=== PATIENT | female | born 1985 | race African-American/Black ===

== ENCOUNTER 2022-06-21 07:21 | Outpatient (CLI) | payer BC, SELFPAY ==
--- NOTE | 2022-06-21 07:15 | CRLHL7_ITS ---
For Patients: As a result of the Century Cures Act, medical imaging exams and procedure reports are released immediately into your electronic medical record. You may view this report before your referring provider. If you have questions, please contact your health care provider. INDICATION: First trimester scan, establish dates. COMPARISON: None. TECHNIQUE: Real-time gibson-scale imaging of the pelvis was performed. FINDINGS: Sonographic imaging demonstrates a single living intrauterine gestation. The embryo demonstrates a regular cardiac rate measuring 146 beats per minute. The embryo`s crown-rump length measurement of 1.4 cm corresponds to a gestational age of 7 weeks 5 days with a sonographic due date of February 02, 2023. There is a normal-appearing yolk sac measuring 3.3 mm. There are no gross abnormalities noted within the embryo at this early state of development. The placenta has not yet developed. The gestational sac has a normal appearance. Along the superior right side of the gestational sac is a large area of presumed subchorionic hemorrhage measuring 3.9 x 1.4 x 4 cm. Given this presumed large subchorionic hemorrhage, a short interval follow-up ultrasound is recommended to assess for progression or regression of the . The amount of fluid within the sac appears appropriate for gestational age. The cervix is closed. The myometrium appears normal with the exception of a left superior fundal fibroid measuring 1.7 x 2.0 x 2.3 cm. The ovaries are of normal size. The right ovary measures 3.3 x 1.7 x 2.5 cm. The left ovary measures 4.9 x 3.0 x 3.1 cm. Corpus luteum cyst of on the left measuring 2.8 x 2.4 x 2.9 cm. There are no suspicious fluid collections noted in the cul-de-sac. A voicemail message was left for Nayeli Zuleta, nurse practitioner ,at 12 noon on June 21, 2022 regarding these findings. IMPRESSION: Normal first trimester OB ultrasound exam. Gestational age calculated at 7 weeks 5 days with a sonographic due date of February 02, 2023. Please note however there appears to be a large amount of subchorionic hemorrhage superiorly toward the right of midline. A short interval follow-up ultrasound may be helpful to assess for progression or regression of this hemorrhage. Left fundal fibroid. Dictated by Kyle Garcia MD @ 06/21/2022 12:03:01 PM (Electronically Signed)
== END 2022-06-21 07:22 | disposition home or self-care (01) ==
PROVIDERS: Visit Provider Registered Nurse
DX: Z34.91 Encounter for supervision of normal pregnancy, unspecified, first trimester (principal); O34.11 Maternal care for benign tumor of corpus uteri, first trimester; Z3A.01 Less than 8 weeks gestation of pregnancy
CPT/HCPCS: 76801; 86592; 86703; 86762; 86787; 86803; 86850; 86900; 86901; 87086; 87340; 87491; 87591

== ENCOUNTER 2022-06-21 08:17 | Outpatient (CLI) | payer BC, SELFPAY ==
[2022-06-21 12:00] LABS: Chlamydia DNA Amplified* NOT DETECTED (No Detected); GC DNA Amplified* NOT DETECTED (No Detected)
== END 2022-06-21 08:18 | disposition home or self-care (01) ==
PROVIDERS: Visit Provider Registered Nurse
DX: Z34.91 Encounter for supervision of normal pregnancy, unspecified, first trimester (principal)
CPT/HCPCS: 86592; 86703; 86762; 86787; 86803; 86850; 86900; 86901; 87086; 87340; 87491; 87591

== ENCOUNTER 2022-07-05 07:15 | Outpatient (CLI) | payer BC, SELFPAY ==
--- NOTE | 2022-07-05 07:15 | CRLHL7_ITS ---
For Patients: As a result of the Century Cures Act, medical imaging exams and procedure reports are released immediately into your electronic medical record. You may view this report before your referring provider. If you have questions, please contact your health care provider. INDICATION: Follow-up subchorionic hemorrhage. COMPARISON: 06/21/2022 TECHNIQUE: Real-time gibson-scale imaging of the pelvis was performed. FINDINGS: Sonographic imaging demonstrates a single living intrauterine gestation. The embryo demonstrates a regular cardiac rate measuring 179 beats per minute. The embryo`s crown-rump length measurement of 2.9 cm corresponds to a gestational age of 9 weeks 5 days with a sonographic due date of 02/02/2023. There is a normal-appearing yolk sac. There are no gross abnormalities noted within the embryo at this early state of development. The gestational sac has a normal appearance. There is a 3.4 x 2.0 x 1.4 cm perigestational hemorrhage adjacent to the right fundal gestational sac. The amount of fluid within the sac appears appropriate for gestational age. IMPRESSION: Right fundal subchorionic hemorrhage measuring 3.4 x 2.0 x 1.4 cm, previously measuring 3.9 x 1.4 x 4.0 cm Dictated by Mak Styles MD @ 07/05/2022 12:26:22 PM (Electronically Signed)
== END 2022-07-05 07:16 | disposition home or self-care (01) ==
LOC: US 07:17
PROVIDERS: Visit Provider Registered Nurse
DX: O46.8X1 Other antepartum hemorrhage, first trimester (principal); Z3A.09 9 weeks gestation of pregnancy
CPT/HCPCS: 76816

== ENCOUNTER 2022-11-08 09:35 | Outpatient (CLI) | payer BC, SELFPAY | END 2022-11-08 09:36 | disposition home or self-care (01) | LOC: NFLDREF 11-10 10:23 | PROVIDERS: PCP Registered Nurse; Referring Provider Registered Nurse; Visit Provider Advanced Practice Midwife | DX: Z34.93 Encounter for supervision of normal pregnancy, unspecified, third trimester (principal); Z3A.28 28 weeks gestation of pregnancy | CPT/HCPCS: 86592 ==

== ENCOUNTER 2023-01-01 09:10 | Outpatient (CLI) | payer BC, SELFPAY ==
--- NOTE | 2023-01-01 09:15 | CRLHL7_ITS ---
For Patients: As a result of the Century Cures Act, medical imaging exams and procedure reports are released immediately into your electronic medical record. You may view this report before your referring provider. If you have questions, please contact your health care provider. INDICATION: COVID IN , GROWTH COMPARISON: 07/05/2022 TECHNIQUE: Real time gibson scale imaging of the fetus was performed. FINDINGS: Sonographic imaging demonstrates a single living intrauterine gestation. Fetus demonstrates a regular cardiac rate of 126 beats per minute. Fetus has a transverse position, head maternal left. The placenta lies anteriorly. Amniotic fluid volume appears normal and there is a single deepest vertical pocket: 5.8 cm. The estimated weight is 3394gm which lies at the 94th %. BPD 53rd percentile. HC 41st percentile. AC greater than 97th percentile. FL 66th percentile. The HC/AC ratio measures 0.92 range (0.91-1.05). IMPRESSION: Sonographic gestational age 37 weeks 2 days and sonographic due date 01/20/2023. Sonographic age is 8 days ahead of the clinical age. Estimated weight 94th percentile. Abdominal circumference greater than 97th percentile. Dictated by Mak Styles MD @ 01/01/2023 10:05:59 AM (Electronically Signed)
== END 2023-01-01 09:11 | disposition home or self-care (01) ==
LOC: US 09:10
PROVIDERS: Visit Provider Registered Nurse
DX: O98.519 Other viral diseases complicating pregnancy, unspecified trimester (principal); U07.1 COVID-19; Z3A.37 37 weeks gestation of pregnancy
CPT/HCPCS: 76816; 87081; 87653

== ENCOUNTER 2023-01-08 09:04 | Outpatient (CLI) | payer BC, SELFPAY ==
[2023-01-08 09:13] VITALS: PULSE 76; O2SAT 96
[2023-01-08 09:21] VITALS: BP 114/56; PULSE 72; RESP 17; TEMP 37.1; O2SAT 99
[2023-01-08] MEDS: TERBUTALINE 1 MG/ML INJ 0.25 MG SUBCUT (11:01)
--- NOTE | 2023-01-08 11:18 | P.GYNPRC_ITS ---
Procedure Note Time Seen by Provider: 11:00 Date of procedure: 01/08/23 Pre-op diagnosis: malpresentation (transverse) Anesthesia: none Complications: None. Surgeon: Dr. Jeanine Stahl Sales Teacher: Kenzie Stroud Condition: stable Findings: Preprocedure ultrasound confirmed male presentation, transverse back up with head to maternal left. Procedure Description: The risks, benefits, and alternatives of performing an ECV were discussed on admission, including the risk of risks of a non-reassuring heart rate, PROM, placental abruption, possible emergency , and fetomaternal hemorrhage. We reviewed that success rate is dependent upon provider experience, amniotic fluid volume, placental location, and maternal weight. We discussed that in the case of a failed ECV, we plan a delivery for persistent malpresentation. Consent was obtained and the patient desired to proceed. Ultrasound confirmed transverse malpresentation prior to procedure. Procedure Note: Terbutaline 0.25 mg SQ was given and we then proceeded with the procedure. With manual pressure applied to the maternal abdomen, with attempted version in the clockwise direction. A total of 1 attempts were made. Ultimately the procedure was successful and presentation at the conclusion was cephalic. Both mom and baby were stable. heart rate noted to be in the 130s postprocedure with moderate variability. Plan to proceed with 1 hour of observation with continuous heart rate monitoring and toco. Anticipate dismissal to home. Return precautions reviewed. Recommend ultrasound confirmation of presentation upon admission for delivery given history of variable presentation.
--- NOTE | 2023-01-08 12:44 | PC.OBNST ---
NST Note NST Note Start: 01/08/23 09:08 Freq: ONCE Status: Active Protocol: Document 01/08/23 12:42 [facility] (Rec: 01/08/23 12:44 [facility] [id number]) NST Note 7 Para (# of births) 4 EDC 01/29/23 Gestational Age In Weeks & Days 37 Weeks & 0 Days High Risk Factors History of / Stillborn Patient Presented with Complaint(s) of Other Other Complaints Patient here for scheduled version which was successful. Reactive Yes Appropriate for Gestational Age Yes BARBER Whittington RN Date 01/08/23 Reactive Yes Appropriate for Gestational Age Yes BARBER Gtz Date 01/08/23 OB NST charge Yes Complete NST Note via Write Note Yes The provider's electronic signature indicates the NST is reactive/appropriate for gestational age. *Note to provider: If an addendum is required, open the patient's chart and click on the note under the Nurse/Allied Health tab.
== END 2023-01-08 12:30 | disposition home or self-care (01) ==
LOC: OB 11:57 → OB CLI 17:24 → OB 17:25
PROVIDERS: Visit Provider Obstetrics & Gynecology
DX: O09.523 Supervision of elderly multigravida, third trimester (principal); Z3A.37 37 weeks gestation of pregnancy
CPT/HCPCS: 59025; 99211; J3105

== ENCOUNTER 2023-01-30 07:09 | Inpatient (IN) | payer BC, SELFPAY ==
[2023-01-30] VITALS (18 sets, daily range): BP systolic 107–130; BP diastolic 46–72; PULSE 53–78; RESP 16–18; TEMP 36.5–37.1; O2SAT 99; BMI 30.1
--- NOTE | 2023-01-30 08:11 | W.PM.LDBA ---
Subjective History of Present Illness Narrative: Nile is a 37 yo at 40 2/7 weeks gestation being admitted to Labor and Delivery for AMA and unstable lie. She reports she has had some mild irregular contractions but nothing painful. She was checked in clinic yesterday, /2. Her full history and physical was dictated by YVON Wayne on 01/09. Please see this for details. Specific Issues/Plans G 7 P 5014 : Germán H & P done 01/09 by Sandie Wayne 1. AMA Mat 21 order placed Level 2 US: referral to [facility], 09/01 unremarkable w/ exception of hypoplastic nasal bone 2. H/o son with hypoplastic left heart, first . at 5 days of age in surgery. NIPT: low risk Level 2 US: Completed 09/01, see above echo: Scheduled with Pediatric cardiology: 09/29 Normal cardiac anatomy. echo in first 6months of life. 3. Rec. baby aspirin starting at 12 weeks to reduce risk of preeclampsia due to AMA and mother with history of preeclampsia. 4. Large BLANCA 3.9 x 1.4 x 4 cm. Advised pelvic rest. Recommend follow-up ultrasound in 2 weeks. F/u u/s: BLANCA 3.4 x 2.0 x 1.4 cm 5. Fibroid measuring 1.7 x 2 x 2.3 cm. 6. Closely spaced pregnancies. 7. 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 Covid positive; +test on 11/30/22- 9. 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 37 yo at 40 2/7 weeks gestation? complicated by:?AMA, Hx of hypoplastic left heart, fibroid, close spacing, hypoplastic nasal bone of fetus, covid positive during ,, unstable lie Labor type: Induced, early labor? Category 1 FHR pattern.?? Labor complicated by: unstable lie? GBS negative? ? PLAN:? 1. Routine intrapartum cares as ordered. Reviewed options of cytotec, AROM, or pitocin. Her last IOL was AROM and Pit. She would like to try without IV. Plan cytotec. 2. Monitoring per policy, Continuous with induction agents. May consider intermittent if not on induction agent.? 3. Planning unmedicated . Desires water . Consent signed. Hep C negative. Candidate for analgesia of choice if desired. Previously had waterbirth.?? 4. Patient encouraged to reposition and ambulate to promote physiologic labor and .? 5. Anticipate .? Delivery/Labor/Induction Plan Plan: induction Induction method: per misoprostol protocol OB Exam Physical Exam Vital signs: Pulse BP Pulse Ox 64 120/64 99 01/30/23 08:01 01/30/23 08:01 01/30/23 07:59 Narrative: Vitals Reviewed Constitutional:? Alert and oriented x3 HEENT:? Normocephalic, atraumatic Neck:? Supple Lungs:? Clear to auscultation bilaterally Heart:? Regular rate and rhythm, no murmur, rub or gallop Abdomen:? Soft, nontender, and gravid. Vertex by Erick's, confirmed bedside US. Extremities:? No edema or erythema Cervix: deferred, checked in clinic yesterday NST: 115 bpm/moderate variability/15x15 accelerations/no decelerations/contractions occasionally Detailed Labor and Delivery Exam Patient Gravid: Yes
[2023-01-30] MEDS: miSOPROStoL 25 MCG/0.25 TABLET VAGINAL (08:22)
--- NOTE | 2023-01-30 19:28 | PM.OBCN1 ---
OB - CN: HPI Date of Consult Time Seen by Provider: 19:28 Date Seen: 01/30/23 Patient: [facility] Patient Consult date: 01/30/23 Requesting Physician: Yesenia Rosen CNM Primary Care Provider: Not a Local Provider Consult Narrative Reason for consult: other (External cephalic version) Narrative: The patient is a 37 year old G 7 P 5 at 40 2/7 weeks gestation that was admitted to the Center on 01/30/23 for induction of labor secondary to unstable lie. She has already had 1 successful external cephalic version during this . At the time of admission this morning, ultrasound at the bedside reportedly confirmed vertex presentation. The patient received single dose misoprostol to induce labor. She is kori every 2-4 minutes. heart tones are category 1. Admission history and physical was completed by Radha Wayne CNM on 01/09/2023. OB PROBLEM LIST: 1. AMA Mat 21 order placed Level 2 US: referral to [facility], 09/01 unremarkable w/ exception of hypoplastic nasal bone 2. H/o son with hypoplastic left heart, first . at 5 days of age in surgery. NIPT: low risk Level 2 US: Completed 09/01, see above echo: Scheduled with Pediatric cardiology: 09/29 Normal cardiac anatomy. echo in first 6months of life. 3. Rec. baby aspirin starting at 12 weeks to reduce risk of preeclampsia due to AMA and mother with history of preeclampsia. 4. Large BLANCA 3.9 x 1.4 x 4 cm. Advised pelvic rest. Recommend follow-up ultrasound in 2 weeks. F/u u/s: BLANCA 3.4 x 2.0 x 1.4 cm 5. Fibroid measuring 1.7 x 2 x 2.3 cm. 6. Closely spaced pregnancies. 7. 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 Covid positive; +test on 11/30/22- 9. Transverse position Successful ECV on 01/08 - recommend US for presentation upon admission for delivery given variable presentation Hx of unstable lie w/ previous Consider IOL at 39 0/7 for unstable lie History History 7 Elective abortions Para 5 Spontaneous abortions 1 Hx # Term Pregnancies Ectopic pregnancies Hx # Pregnancies Multiple births Number of Living Children 4 Past Pregnancies Del. Date GA/Weeks Outcome Route wt Inf Gender Labor Lgth Anesthesia Location Provider Compli 07/12/03 39 8 lb 7 oz Male none [place] other 08/07/06 39 8 lb 3 oz Female none [place] 05/12/10 39 8 lb 13 oz Male none [place] 02/03/15 39 7 lb 4 oz Female none [place] other 08/25/21 39 8 lb 4 oz Female none [place] Delivery Date: 07/12/03 Last Updated by: Marbella Briceno (ALEK)ALEK Heart murmur defect. baby passed 5 days of age in surgery Delivery Date: 02/03/15 Last Updated by: Marbella Briceno (ALEK), KEYLINER Short umbilical cord Labs GBS status: negative OB Labs: Lab Assessment Start: 01/30/23 08:06 Freq: ONCE Status: Complete Protocol: PC.OBGBS Activity Type Activity Date Activity User E-sign Co-sign Detail Recorded Client Recorded Date Recorded By Document 01/30/23 08:13 LG [id number] 01/30/23 08:14 LG 01/30/23 08:13 Lab Assessment GBS Status negative GBS Additional Criteria None Is Patient Allergic to Penicillin? No No Treatment Needed OK Are Labs Available Yes Maternal Blood Type AB Maternal RH Factor Positive Evaluate Maternal Rubella Immune Status Immune Hepatitis B Surface Antigen Negative Maternal HIV Status Negative Maternal Syphillis (RPR) Status Negative [facility] Medical History (Updated 01/30/23 @ 19:34 by Katy Myrick MD) Breech presentation of fetus ?O32.1XX0 - Maternal care for breech presentation, not applicable or unspecified (ICD-10) Normal spontaneous vaginal delivery ?O80 - Encounter for full-term uncomplicated delivery (ICD-10) History of recurrent ear infection ?Z86.69 - Personal history of other diseases of the nervous system and sense organs (ICD-10) Otitis externa ?H60.90 - Unspecified otitis externa, unspecified ear (ICD-10) Family History Other Congenital heart disease Social History What is your current living situation?: I presently have a place to live Problems where you live: no known problems In the past 12 months, utilities in danger of being shut off: no In past 12 months, lack of transportation kept you from medical appts, meetings, work, or getting things needed for daily living: no In the past 12 mos, have been you worried that your food would run out before you had money to buy more?: never true In the past 12 mos, the food you bought just didn't last and you didn't have money to buy more?: never true Smoking Status: Former smoker How often does anyone, including family, friends and others, physically hurt you: never How often does anyone, including family, friends and others, insult or talk down to you: never How often does anyone, including family, friends and others, threaten you with harm: never How often does anyone, including family, friends and others, scream or curse at you: never Little interest or pleasure in doing things: not at all Feeling down, depressed, or hopeless: several days Meds Home Medications and Allergies Home Medications Medication Instructions Recorded Confirmed Type cholecalciferol (vitamin D3) 125 125 mcg PO QDAY 06/21/22 01/30/23 History mcg (5,000 unit) capsule cholecalciferol (vitamin D3) 50 50 mcg PO QDAY 06/21/22 01/30/23 History mcg (2,000 unit) capsule docosahexaenoic acid 200 mg mg PO 06/21/22 01/29/23 History capsule ( DHA) Allergies Allergy/AdvReac Type Severity Reaction Status Date / Time apple Allergy Mild Nausea Verified 01/30/23 08:12 Fedscreek Meal AdvReac Intermediate Uncoded 01/29/23 10:55 Apricot Flavor AdvReac Intermediate itchy Uncoded 01/29/23 10:55 throat/nausea Carrot Powder AdvReac Intermediate Uncoded 01/29/23 10:55 OB - H&P: Exam Physical Exam: Vital signs: Temp Pulse Resp BP Pulse Ox 98.1 F 66 18 118/58 L 99 01/30/23 17:07 01/30/23 17:07 01/30/23 12:48 01/30/23 17:07 01/30/23 07:59 Constitutional: Constitutional: no acute distress (Uncomfortable with contractions) Routine Abdominal Exam: Comments: Abdomen is gravid, nontender, intermittently firm with contractions Detailed Labor and Delivery Exam: Patient Gravid: Yes Contraction intensity: Moderate Comments: A limited OB ultrasound was performed at the bedside using a transabdominal transducer. The fetus was found to be in a footling breech presentation, head in the maternal left upper quadrant, breech in the maternal right lower quadrant with feet presenting. 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 See procedure note.
--- NOTE | 2023-01-30 19:35 | P.PCN_ITS ---
Procedure Note Time Seen by Provider: 19:35 Date Seen: 01/30/23 Date of procedure: 01/30/23 Will [facility] bill your pro fee for this procedure?: Yes Pre-op diagnosis: Unstable lie, fetus currently in a footling breech presentation Post-op diagnosis: other (Unstable lie, fetus currently in a vertex presentation) Procedure: External cephalic version Procedure Description: A nonstress test was performed, which was reactive and reassuring. A limited OB ultrasound was performed at the bedside to determine position. Findings noted above. Informed consent was obtained for external cephalic version. External cephalic version was attempted between contractions. I applied upward pressure to the breech, Yesenia Rosen applied downward pressure to the vertex, and we attempted to gently coax the fetus in a forward roll in a clockwise direction. This attempt was unsuccessful. A 2nd attempt was made to coax the infant in a forward roll in a clockwise direction, as I applied pressure to the head and Yesenia applied pressure to the breech. This attempt was successful. heart tones were noted to be normal between and after the attempts. The patient tolerated the procedure well. Anesthesia: none Surgeon: Katy Myrick MD Landcare Officer: Yesenia Rosen Condition: stable Disposition: no change
--- NOTE | 2023-01-30 19:44 | P.OBPN_ITS ---
Subjective Date Seen: 01/30/23 Narrative: Nile is a 37 yo that presented this morning for induction of labor for AMA and unstable lie. Her induction was started with cytotec. Due to circumstances of the unit, she never received a 2nd dose. She has slowly become more uncomfortable with contractions. Had discussed AROM for labor augmentation. No head was felt with cervical exam. Bedside US performed, small parts visible in pelvic area, head on maternal left. Dr. Myrick was called for consultation of breech position and possibly try external cephalic version. See her notes for further details. ECV was attempted and successful, however a large amount of amniotic fluid noted above head. Recommended sitting on birthing ball to attempt to bring baby lower into pelvis. Dr. Myrick then recommends consider AROM to further engage head. Plan to re-evaluate in 1 hour. Objective Exam: Objective: Constitutional: Alert and oriented x3, mild distress, coping well Vital signs stable, see nurse documentation Abdomen: gravid, contractions palpate moderate with contractions and soft between Cervix: no presenting part palpated NST: 120 bpm/moderate variability/15x15 accelerations/no decelerations/contractions every 3-5 minutes VERTEX by bedside US after ECV with Dr. Myrick Vital Signs: Last Vital Signs Temp 98.1 F 01/30/23 17:07 Pulse 66 01/30/23 17:07 Resp 18 01/30/23 12:48 BP 118/58 L 01/30/23 17:07 Pulse Ox 99 01/30/23 07:59 Contractions Contraction intensity: Moderate Plan Plan: ASSESSMENT:? 37 yo at 40 2/7 weeks gestation? Labor type: Induced, early labor? Category 1 FHR pattern.?? Labor complicated by: unstable lie with successful ECV performed in early labor GBS negative? ? PLAN:? 1. Routine intrapartum cares as ordered. Due to unstable lie, plan to re- evaluate in 1 hour and consider AROM. 2. Monitoring per policy, Continuous due to recent ECV x1 hour, may consider intermittent after that time. 3. Planning unmedicated . Desires water . Consent signed. Hep C negative. Candidate for analgesia of choice if desired. 4. Patient encouraged to reposition and ambulate to promote physiologic labor and .? 5. Anticipate .?
--- NOTE | 2023-01-30 21:45 | W.PM.OBVAGDE ---
OB Procedure Vag Delivery Mother Details Mother Details: Nile is a 37 year-old, 7, now Para 6, admitted on 01/30/23 at 40.2 weeks gestation. : 7 Para: 6 Weeks Gestation: 40.2 Admission Date: 01/30/23 Additional Details Amniotic Membrane Status: intact Amniotic Membrane Rupture Date: 01/30/23 Amniotic Membrane Rupture Time: 21:10 Amniotic Membrane Fluid Description: Clear Analgesia/Anesthesia Type: None Waterbirth: Yes Pitcoin: No Intrapartal Events: Labor Induction Induction Method: per misoprostol protocol (x1 dose) Labor Onset: 20:25 Complete: 21:05 Pushin:05 Heart: heart tones during second stage were intermittently ausculated 120-150, no audible decels . Delivery Details Delivery Date: 01/30/23 Delivery Time: 21:12 Route of delivery: Gender: Female Viability: Alive; Heart Rate Present Position at Delivery: OA Delivery Details: Patient was admitted for induction of labor for AMA and unstable lie. She received 1 dose of Cytotec and slowly got uncomfortable throughout the day. With repeat vaginal exam, fetus was found to be footling breech. ECV was successfully performed by Dr. Myrick with help of YVON Low. Shortly after, patient progressed to 5-6 cm and desired to get into the tub. Seble Sahu CNM arrived at 2100 to patient feeling pressure in the tub. SROM occurred with pushing just before delivery of clear fluid. Patient was assumed complete at onset of pushing at 2104. of a viable female at 2111 in semi fowlers position in the tub. Vertex delivered OA. No nuchal cord or shoulder. Body delivered easily and without incident. passed to mothers abdomen with a vigorous cry. Cord was clamped and cut at > 5 minutes. APGARS were 7 at one minute and 9 at five minutes respectively. Mouth was bulb suctioned. Guero Rosen CNM assumed care after patient was transferred out of the tub and into the bed for delivery of placenta and assessing any lacerations. Intact placenta with a 3 vessel cord delivered spontaneously at 2128. Fundus firm. 2nd degree identified and repaired in typical fashion. QBL 100 cc. Mother and baby stable; mother plans to breastfeed. Infant weight pending. 1 Minute Interval Total Score: 7 5 Minute Interval Total Score: 9 Additional Details Shoulder Dystocia: No Placenta Delivery Time: 21:29 Placental Delivery Description: Spontaneous Blood Loss: 100 Laceration: None Blood Loss Measurement Type: QBL Bakri Used: No Sponge/Need Count Correct: Yes Cord Vessel Description: 3 Vessels Event Summary Status: Mother and were stable after delivery. Disposition: floor
[2023-01-30] MEDS: IBUPROFEN 600 MG TABLET PO (22:16)
[2023-01-31] MEDS: lidocaine HCL 2 % JELLY (TOP) STERILE 6 ML TOPICAL (01:16)
[2023-01-31 04:33] VITALS: BP 103/61; PULSE 66; RESP 14; TEMP 36.6
[2023-01-31 07:13] LABS: Hemoglobin* 11.4 gm/dL (12.0-16.0)
[2023-01-31 08:20] VITALS: BP 101/60; PULSE 71; RESP 16; TEMP 36.5; O2SAT 97
[2023-01-31] MEDS: DOCUSATE SODIUM 100 MG CAPSULE PO (09:30)
--- NOTE | 2023-01-31 10:17 | P.OBPN_ITS ---
OB - PN:Subj Subjective Date Seen: 01/31/23 Patient comments OB post-: no complaints and pain well controlled [place] infant status: and doing well [place] feeding status: exclusively Narrative: Nile is a 37 y.o. who was admitted to L & D for induction of labor. ?She had an uncomplicated NVD.?The patient feels well. ?The pain is well controlled with current medications. ?She has no new complaints. ?She is breast feeding and reports things are going well.? the patient has done well.? Vitals have been stable.? She has remained afebrile.? Has a good appetite, is to lerating a general diet. ?She is voiding without difficulty.? She is passing gas and has not yet had a bowel movement.? She is ambulating and denies any dizziness.? Has Small amount of rubra lochia. She plans to stay tonight and discharge tomorrow. OB - PN: Obj Exam Physical Exam: Vital signs: Temp Pulse Resp BP Pulse Ox O2 Del Method 97.7 F 71 16 101/60 97 Room Air 01/31/23 08:20 01/31/23 08:20 01/31/23 08:20 01/31/23 08:20 01/31/23 08:20 01/31/23 08:20 Narrative: GENERAL APPEARANCE:? normal affect, alert, no distress? MOOD:? appropriate? HEENT: normocephalic, neck supple, full ROM? CHEST:? Symmetrical chest wall movement.? Normal respiratory effort.? Clear to auscultation ? HEART:? regular rate and rhythm? ABDOMEN:? soft, non-tender. Uterine fundus is firm, at Umbilicus, Midline and is appropriate for the stage of recovery.? Bowel sounds present.? PERINEUM:? mild edema of the perineum, no laceration.? EXTREMITIES:? normal and no edema? OB - PN: Obj Data Labs Labs: Laboratory Results - last 24 hr 01/31/23 06:56 Hgb 11.4 L OB - PN: A/P Delivery Assessment and Plan (1) care and examination immediately after delivery: Status: Acute (2) Lactating mother: Status: Acute Plan day: 1 Plan: routine care Comments: G 7 P 6 status post uncomplicated NVD??? 1.? Continue route PP cares? 2.? .? May see if desired? 3.? Anticipate discharge home tomorrow?
[2023-01-31] MEDS: IBUPROFEN 600 MG TABLET PO ×2 (10:30→23:37)
[2023-01-31 12:14] VITALS: BP 104/56; PULSE 76; RESP 16; TEMP 36.7; O2SAT 97
[2023-01-31 16:31] VITALS: BP 108/69; PULSE 66; RESP 16; TEMP 36.7; O2SAT 97
[2023-01-31 20:05] VITALS: BP 112/69; PULSE 67; RESP 16; TEMP 36.7; O2SAT 97
--- NOTE | 2023-02-01 07:50 | PM.OBDSVD1 ---
DS: Providers Provider Time Seen by Provider: 07:51 Date Seen: 02/01/23 Date of admission: 01/30/23 07:09 Primary care physician: Not a Local Provider Admitting Clinician: Yesenia Rosen CNM Consults: 01/30/23 19:44 Consult to Physician [CONS] Routine Comment: Consulting Provider: Katy Myrick Has provider been notified: Yes Attending Physician on discharge: Yesenia Rosen CNM DS: Diagnosis Discharge Diagnosis (1) care and examination immediately after delivery: Status: Acute (2) Lactating mother: Status: Acute Exam Narrative: Exam Narrative: VSS, afebrile GENERAL APPEARANCE: ?normal affect, alert, no distress MOOD: ?appropriate HEENT: normocephalic, neck supple, full ROM CHEST: ?Symmetrical chest wall movement. ?Normal respiratory effort. ?Clear to auscultation HEART: ?regular rate and rhythm ABDOMEN: ?soft, non-tender. Uterine fundus is firm, at Umbilicus, Midline and is appropriate for the stage of recovery. ?Bowel sounds present. PERINEUM: Deferred per pt request, has PP shapeware on for support. States WNL EXTREMITIES: ?normal and no edema Const: Vital Signs, click to edit/add: Vital Signs - 24 hr 01/31/23 08:20 01/31/23 12:14 01/31/23 16:31 Temperature 97.7 F 98.1 F 98.0 F Pulse Rate [Blood Pressure Cuff] 71 76 66 Respiratory Rate 16 16 16 Blood Pressure [Ri ght Arm] 101/60 104/56 L 108/69 Pulse Oximetry 97 97 97 Oxygen Delivery Me thod Room Air Room Air Room Air 01/31/23 20:05 Temperature 98.1 F Pulse Rate [Blood Pressure Cuff] 67 Respiratory Rate 16 Blood Pressure [Ri ght Arm] 112/69 Pulse Oximetry 97 Oxygen Delivery Me thod Room Air Documenting provider has reviewed patient's vital signs: yes OB - DS: Summary Hospital Course Hospital Course: Nile is a 37 y.o. G 7 P 6 who was admitted to L & D for IOL. ?She had an uncomplicated NVD. Did need a repeat ECV in labor for unstable lie that flipped breech again. The patient feels well. ?The pain is well controlled with current medications. ?She has no new complaints. ?She is breast feeding and reports things are going well.? the patient has done well.? Vitals have been stable.? She has remained afebrile.? Has a good appetite, is tolerating a general diet. ?She is voiding without difficulty.? She is passing gas and has not had a bowel movement.? She is ambulating and denies any dizziness.? Has Small amount of rubra lochia. She is planning NFP for prevention. Problems: none plan: Discharge home with baby. Follow up in 2 weeks and 6 weeks. , may follow up with if needed Peripartum Data delivery method: Vaginal complications: none [place] Infant Gender: Female Discharge Plan: Home Status at Discharge Functional status at discharge: independent ambulation Overall status at discharge: patient is progressing back to baseline Time Spent with Patient Time attestation: Total time spent providing and/or coordinating discharge services: Time spent: Less than 30 minutes Discharge Plan Discharge Disposition: Home, Self-Care Date of Admission: 01/30/23 07:09 Attending Provider on Discharge: Radha Wayne Consulting Providers: Katy Myrick Primary Care Provider: Provider,Not a Local Condition: Stable Anticipated Discharge Date/Time: 02/01/23 11:00 Discharge Medications: New docusate sodium 100 mg Capsule 100 mg PO BID PRNQty: 100 0RF Rx Instructions: Take 1 cap 1-2 times a day as needed for constipation ibuprofen 600 mg Tablet 600 mg PO Q6H PRNQty: 60 0RF Continued cholecalciferol (vitamin D3) 50 mcg (2,000 unit) capsule 50 mcg PO QDAY cholecalciferol (vitamin D3) 125 mcg (5,000 unit) capsule 125 mcg PO QDAY DHA 200 mg capsule PO Discharge Orders: Discharge Order (Routine); Ordered 02/01/23 Ordered By: Radha Wayne Patient Education: OB Over the Counter Medication Information, OB Vaginal/Breast Feeding Activity Level: Activity as Tolerated Discharge Diet: Regular Follow Up Appointments: Provider,Not a Local [Primary Care Provider] - Forms: [employer] Info Instructions
[2023-02-01 09:00] VITALS: BP 107/68; PULSE 78; RESP 16; TEMP 36.8; O2SAT 98
[2023-02-01] MEDS: DOCUSATE SODIUM 100 MG CAPSULE PO (09:21)
== END 2023-02-01 10:40 | disposition home or self-care (01) | DRG 560 ==
PROVIDERS: Admitting Provider Advanced Practice Midwife; Visit Provider Advanced Practice Midwife
DX: O32.0XX0 Maternal care for unstable lie, not applicable or unspecified (principal); Z3A.40 40 weeks gestation of pregnancy; Z37.0 Single live birth; Z82.79 Family history of other congenital malformations, deformations and chromosomal abnormalities; O99.344 Other mental disorders complicating childbirth; F41.9 Anxiety disorder, unspecified; O34.13 Maternal care for benign tumor of corpus uteri, third trimester; D25.9 Leiomyoma of uterus, unspecified
CPT/HCPCS: 36415; 59200; 59412; 76815; 85018; 85025; 86850; 86900; 86901; A9270